=== PATIENT | male | born 1985 | race Caucasian/White ===

== ENCOUNTER 2018-09-13 06:06 | Emergency (ER) | payer MEDICAID ==
[~2018-09-13] VITALS: Ht 188 cm; Wt 87.5 kg
[~2018-09-13 06:06] MED LIST: CLOT1TC TOP; DIVA500ER PO; PRED10 PO; TRAZ150T57 PO
== END 2018-09-13 08:10 | disposition home or self-care (01) ==
LOC: ER 06:06
DX: S80.812A Abrasion, left lower leg, initial encounter (principal); S80.811A Abrasion, right lower leg, initial encounter; F31.9 Bipolar disorder, unspecified; F17.200 Nicotine dependence, unspecified, uncomplicated; Z59.0 Homelessness; X58.XXXA Exposure to other specified factors, initial encounter
CPT/HCPCS: 99283